=== PATIENT | male | born 1960 | race Caucasian/White ===

== ENCOUNTER 2019-06-22 10:34 | Emergency (ER) | payer BC, SELFPAY ==
[2019-06-22 10:41] VITALS: BP 137/78; PULSE 86; RESP 20; TEMP 36.5; O2SAT 99
--- NOTE | 2019-06-22 10:48 | ED.URI ---
HPI - URI/Sore Throat General Chief Complaint: Upper Respiratory Infection Stated Complaint: cough/runny nose/nausea/sore throat Time Seen by Provider: 06/22/19 10:52 Source: patient and RN notes reviewed History of Present Illness HPI Narrative: Patient is a 59-year-old male that presents the urgent care with complaints of chills, sweats, body aches, nonproductive cough, runny nose, intermittent nausea and sore throat. Patient states it started approximately 1 week ago and the symptoms seem to be getting better. Patient denies any fever or vomiting. No other acute complaints. No acute distress noted. Patient read the plan of care. Related Data Home Medications Medication Instructions Recorded Confirmed omeprazole 20 mg PO DAILY 06/22/19 06/22/19 triamterene 25 mg PO DAILY 06/22/19 06/22/19 Allergies Allergy/AdvReac Type Severity Reaction Status Date / Time No Known Allergies Allergy Mild Verified 06/22/19 10:50 Review of Systems Review of Systems: Narrative: CONSTITUTIONAL: Reports of chills and sweats EYES: Denies visual changes, redness, or discharge. ENT: Reports of rhinorrhea, sinus congestion, mild sore throat CARDIOVASCULAR: Denies chest pain, palpitations, or edema. RESPIRATORY: Reports of nonproductive cough without dyspnea GASTROINTESTINAL: Denies abdominal pain, nausea, vomiting, or diarrhea. GENITOURINARY: Denies dysuria or hematuria. SKIN: Denies rash or itching. MUSCULOSKELETAL: Denies back pain, joint pain, or myalgia. NEUROLOGIC: Denies headache, numbness, or weakness. All other systems reviewed are negative, except as documented in HPI. PMFSH Family History Family History (Updated 11/25/15 @ 23:21 by DOCTOR UNKNOWN) Mother Hypertension Cerebrovascular accident Family history of diabetes mellitus in first degree relative Sibling Family history of diabetes mellitus in first degree relative Patient's sister is in good health Other Diabetes mellitus Social History Social History Smoking status: Heavy tobacco smoker Alcohol intake: current Comments At the time of my signature, I reviewed and agree with the nursing past medical, surgical, social, and family history. There is no relevant family history pertinent to the patient complaint. Exam Narrative: Exam Narrative: GENERAL: This is a well-nourished, well-developed patient, appears slightly fatigued HEAD: normocephalic, atraumatic. EYES: PERRL. Sclera clear/white. Vision is grossly intact. EARS: External ears normal, auditory canals clear and without drainage, TMs normal without perforation. Hearing grossly intact. NOSE: External nose normal with no obvious nasal discharge, bilateral erythemic nares with clear rhinorrhea. THROAT: Mucous membranes moist, mild erythema noted posterior oropharynx with moderate postnasal drainage. NECK: Neck supple CARDIOVASCULAR: Regular rate and rhythm without murmurs, gallops, or rubs. RESPIRATORY: Clear to auscultation. Breath sounds equal bilaterally. No wheezes, rales, or rhonchi. SKIN: warm, intact with no suspicious lesions or rash, good texture and turgor. NEURO: awake, alert, and oriented to person, place and time. There were no obvious focal neurologic abnormalities. EXTREMITIES: No clubbing, cyanosis, or edema. Course Vital Signs Vital signs: Vital Signs Temperature 97.7 F 06/22/19 10:41 Pulse Rate 86 06/22/19 10:41 Respiratory Rate 20 06/22/19 10:41 Blood Pressure 137/78 06/22/19 10:41 Pulse Oximetry 99 06/22/19 10:41 Temperature 97.7 F 06/22/19 10:41 Pulse Rate 86 06/22/19 10:41 Respiratory Rate 20 06/22/19 10:41 Blood Pressure 137/78 06/22/19 10:41 Pulse Oximetry 99 06/22/19 10:41 Reviewed MDM - URI/Sore Throat MDM Narrative Medical decision making narrative: Advised patient to continue using [id number] medications for symptoms. May use Robitussin or Delsym for cough. Treat fevers and body aches with Tylenol/ibuprofen. Use Flona
== END 2019-06-22 11:00 | disposition home or self-care (01) ==
PROVIDERS: Emergency Provider Nurse Practitioner Family; PCP Family Medicine
DX: J06.9 Acute upper respiratory infection, unspecified (principal); F17.200 Nicotine dependence, unspecified, uncomplicated; I10 Essential (primary) hypertension
CPT/HCPCS: 99211; G0463

== ENCOUNTER 2021-01-12 15:45 | Outpatient (CLI) | payer BC, SELFPAY ==
--- NOTE | ~2021-01-12 | CT_ITS ---
EXAMINATION: CT lung screening DATE: 01/12/2021 16:11 INDICATION: Personal history of nicotine dependence, current smoker with 30 pack year history TECHNIQUE: Computed tomography (CT) of the chest was performed without intravenous contrast. The dose -length product (DLP) was 233.39 mGy-cm. Automated exposure control and iterative reconstruction tech Enstrat[employer] were employed. COMPARISON: 02/28/2018 FINDINGS: No pulmonary nodules are identified. There is mild emphysema. The lungs are free of acute o pacities. There is no pleural effusion or pneumothorax. No pathologically enlarged thoracic lymph nod es are identified. The heart size is normal. Calcified coronary artery atherosclerosis is noted. The gallbladder is surgically absent. There is moderate thoracic spondylosis. IMPRESSION: 1. Lung-RADS category 1: Negative. Continue annual screening with noncontrast low-dose chest CT in 12 months. Reviewed, dictated and finalized at location F. IMPRESSION: 1. Lung-RADS category 1: Negative. Continue annual screening with noncontrast l ow-dose chest CT in 12 months.
== END 2021-01-12 15:46 | disposition home or self-care (01) ==
PROVIDERS: PCP Family Medicine; Visit Provider Family Medicine
DX: Z12.2 Encounter for screening for malignant neoplasm of respiratory organs (principal); Z87.891 Personal history of nicotine dependence
CPT/HCPCS: 71271

== ENCOUNTER 2021-07-05 08:31 | Outpatient (CLI) | payer BC, SELFPAY ==
--- NOTE | ~2021-07-05 | CT_ITS ---
EXAMINATION: CT abdomen pelvis wo con EXAM DATE: 07/05/2021 08:52 INDICATION: R10.32 - Left lower quadrant pain TECHNIQUE: Spiral CT of the abdomen and pelvis was performed without contrast. Axial, coronal and sag ittal images were reviewed. The dose-length product (DLP) for this examination was 1235.89 mGy-cm. The exposure was tailored according to patient size (auto mA exposure control), and iterative reconst ruction (ASIR) was used as additional dose reduction technique. Comparison is made to prior examinati on from 2008. FINDINGS: Mild scattered colonic diverticulosis with moderate amount of inflammation along the descen ding colon, appearance is consistent with acute colonic diverticulitis, possibly with microperforatio n, tiny focus of adjacent extraluminal gas. No abscess or gross free intraperitoneal air. Interval appendectomy. Mild to moderate amount of nonspecific bilateral perinephric fat stranding. Th ere is no nephrolithiasis or hydronephrosis. The prostate is unremarkable. The bladder is unremark able. The liver, spleen, adrenal glands and pancreas are unremarkable. There are cholecystectomy cl ips. There is no retroperitoneal or pelvic lymphadenopathy. There is moderate scattered arterioscl erotic disease. The heart is normal in size. There are no pericardial or pleural effusions. The lung bases are unre markable. There are no osteoblastic or osteolytic lesions identified. IMPRESSION: 1. Acute descending colonic diverticulitis, possibly with microperforation. 2. Mild to moderate nonspecific bilateral perinephric fat stranding. Reviewed, dictated and finalized at location A. MAKER
== END 2021-07-05 08:32 | disposition home or self-care (01) ==
LOC: ANHIMG 08:34
PROVIDERS: PCP Family Medicine; Visit Provider Family Medicine
DX: R10.32 Left lower quadrant pain (principal); K57.32 Diverticulitis of large intestine without perforation or abscess without bleeding
CPT/HCPCS: 74176

== ENCOUNTER 2022-01-23 16:06 | Outpatient (CLI) | payer BC, SELFPAY ==
--- NOTE | ~2022-01-23 | CT_ITS ---
EXAMINATION: CT lung screening DATE: 01/23/2022 16:26 INDICATION: Personal history of nicotine dependence. Lung cancer screening. TECHNIQUE: Computed tomography (CT) of the chest was performed without intravenous contrast. The dose -length product was 222.11 mGy-cm. Automated exposure control and iterative reconstruction technique were employed. COMPARISON: CT dated 01/12/2021 FINDINGS: Heart size normal. No significant pleural or pericardial effusion. Status post cholecystect fredrick. Mild emphysema. No endobronchial lesions. No pneumothorax. There are cholecystectomy clips. The upper abdomen is unremarkable. Gastric wall is mildly prominent, although could be due to underdisten tion. Moderate thoracic spondylosis. No suspicious pulmonary nodules or masses. IMPRESSION: 1. Lung-RADS category 1: Negative. Continue annual screening with noncontrast low-dose chest CT in 12 months. Reviewed, dictated and finalized at location B. IMPRESSION: 1. Lung-RADS category 1: Negative. Continue annual screening with noncontrast l ow-dose chest CT in 12 months.
== END 2022-01-23 16:07 | disposition home or self-care (01) ==
PROVIDERS: PCP Family Medicine; Visit Provider Family Medicine
DX: Z12.2 Encounter for screening for malignant neoplasm of respiratory organs (principal); Z87.891 Personal history of nicotine dependence
CPT/HCPCS: 71271

== ENCOUNTER 2022-03-02 15:57 | Outpatient (CLI) | payer BC, SELFPAY ==
--- NOTE | ~2022-03-02 | XR_ITS ---
EXAMINATION: XR tibia fibula LT 2V, XR ankle LT min 3V DATE: 03/02/2022 16:19 INDICATION: One month of left lower leg pain TECHNIQUE: 1. Anteroposterior and lateral views of the left tibia and fibula were obtained. 2. Anteroposterior, oblique, mortise, and lateral views of the left ankle were obtained. COMPARISON: Left knee radiographs dated 02/12/2012 FINDINGS: Bone alignment is normal from the left knee through the left midfoot. No fracture. Mild joint space n arrowing at the medial compartment of the left knee likely underestimated on nonweightbearing imaging with moderate joint space narrowing evident at the time of an earlier left knee radiograph dated . Normal joint space at the left ankle, mid and hindfoot. Small amount of likely enthesopathic ossification along the tibial insertions of the tibiofibular syndesmosis at the proximal and distal left tibia. Moderate-sized plantar calcaneal spur. Soft tissues are unremarkable. IMPRESSION: 1. 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 No acute osseous abnormality at the left lower leg or ankle. Reviewed, dictated and finalized at location B. IMPRESSION: 1. And at least moderate osteoarthritis of the medial compartment of the left k nee. No acute osseous abnormality at the left lower leg or ankle.
== END 2022-03-02 15:58 | disposition home or self-care (01) ==
LOC: ANHIMG 16:00
PROVIDERS: PCP Family Medicine; Visit Provider Physician Assistant
DX: M79.662 Pain in left lower leg (principal); M17.12 Unilateral primary osteoarthritis, left knee
CPT/HCPCS: 73590; 73610

== ENCOUNTER 2022-03-07 15:17 | Outpatient (CLI) | payer BC, SELFPAY ==
--- NOTE | ~2022-03-07 | US_ITS ---
EXAMINATION: US venous doppler [facility] DATE: 03/07/2022 16:11 INDICATION: Bilateral lower limb pain TECHNIQUE: Smith scale images without and with compression and Doppler images of the bilateral lower e xtremity veins were obtained. COMPARISON: None FINDINGS: The right common femoral vein, profunda femoral vein, femoral vein, popliteal vein, peroneal trunk, p osterior tibial veins, and greater saphenous vein are patent. The left common femoral vein, profunda femoral vein, femoral vein, popliteal vein, peroneal trunk, po sterior tibial veins, and greater saphenous vein are patent. IMPRESSION: 1. Patent bilateral lower extremity veins. No evidence of deep venous thrombosis. Reviewed, dictated and finalized at location B. NE TUTOR IMPRESSION: 1. Patent bilateral lower extremity veins. No evidence of deep venous thrombosi s.
== END 2022-03-07 15:18 | disposition home or self-care (01) ==
PROVIDERS: PCP Family Medicine; Visit Provider Physician Assistant
DX: M79.669 Pain in unspecified lower leg (principal); M79.89 Other specified soft tissue disorders
CPT/HCPCS: 93970

== ENCOUNTER 2022-03-09 00:10 | Day surgery (SDC) | payer BC, SELFPAY ==
[2022-03-02 11:11] VITALS: BMI 31.6
[2022-03-09 08:07] VITALS: BP 137/79; PULSE 83; RESP 20; TEMP 36.2; O2SAT 100; BMI 31.2
--- NOTE | 2022-03-09 08:11 | WPDANESEPPF ---
Anes - Initial Pre Proc Eval Procedure: Operation Date: 03/09/22 09:00 Proposed Procedures p Screening Colonoscopy - Jonathan Abdul MD Date/Time: 03/09/22 08:11 Surgeon: Jonathan Abdul MD Pre Op Diagnosis: neoplasm screening; history of colon polyps Patient Data Age: 61 Gender: M Height: 1.78 m Weight: 98.8 kg Last Vital Signs Temp 36.2 C L 03/09/22 08:07 Pulse 83 03/09/22 08:07 Resp 20 03/09/22 08:07 BP 137/79 03/09/22 08:07 Pulse Ox 100 03/09/22 08:07 O2 Del Method Room Air 03/09/22 08:07 Allergies Allergy/AdvReac Type Severity Reaction Status Date / Time No Known Allergies Allergy Mild Verified 03/02/22 11:12 Home Medications Medication Instructions Recorded Confirmed Type omeprazole 20 mg tablet,delayed 20 mg PO DAILY #90 tabs 11/06/21 03/02/22 Rx release sodium,potassium,mag sulfates 17.5 See Rx Instructions PO .COMPLEX 01/24/22 03/02/22 Rx gram-3.13 gram-1.6 gram oral soln #354 mL (Suprep Bowel Prep Kit) tramadol 50 mg tablet 50 mg PO BID PRN pain, severe #30 03/01/22 03/02/22 Rx tabs atenolol 50 mg tablet 50 mg PO DAILY 03/02/22 03/02/22 History metoprolol succinate 50 mg 50 mg PO DAILY #90 tabs 03/05/22 Rx tablet,extended release 24 hr Patient hx anesthesia problems: none Family hx anesthesia problems: none Results Review: All pre-operative results and documents have been reviewed as part of the pre-operative evaluation. [facility] Past Medical History Medical History Cutaneous T-cell lymphoma GERD (gastroesophageal reflux disease) HTN (hypertension) Tobacco use Family History Family History Mother Hypertension Cerebrovascular accident Family history of diabetes mellitus in first degree relative Sibling Family history of diabetes mellitus in first degree relative Patient's sister is in good health Other Diabetes mellitus Social History Social History Smoking packs per day: 0.75 Smoking cigarettes per day: 15.0 Years smoked: 45 Smoking pack-years: 33.75 Smoking status: Current every day smoker Tobacco type: cigarettes Second hand tobacco smoke exposure: No Alcohol intake: current Drinks per week: 14 Alcohol use details: WEEK Substance use: never Substance use type: does not use Living arrangements: with family Gender identity (if verbalized by the patient): Male Sexual Orientation (if Verbalized by the Patient): Straight or Heterosexual Spiritual care concerns: No Anes - Eval Final PreProcedure Day of Procedure 03/09/22 08:11 Patient weight: obese Heart: regular rate and rhythm Lungs: clear to auscultation Airway: Mallampati scale class II Neurological: alert and oriented Last oral intake: >/= 8 hours ASA classification: III Emergent: no Anesthetic plan: proceed Anesthesia type and monitoring: general GIVS and standard monitoring Results Review: All pre-operative results and documents have been reviewed as part of the pre-operative evaluation. Informed Consent: The patient's anesthetic plan and its attendant risks and benefits were discussed with the patient/family/POA. Questions were solicited and answers provided to the satisfaction of the patient/family/POA.
--- NOTE | 2022-03-09 08:21 | PM.HPGS ---
History of Present Illness History of Present Illness Consent: Risks, benefits, and alternatives have been discussed and questions answered. Patient agrees to proceed with procedure. Chief complaint: neoplasm screening; history of colon polyps Narrative: Wilber Aden is a 61 year old male Presents for screening colonoscopy. Patient states his current weight appetite bowel movements are normal. He denies abdominal pain. He has had no bleeding. Patient did have a bout of diverticulitis several months ago that responded to antibiotics. He has had several recent colonoscopy is at were unremarkable. There is a history of a colon polyp some time prior to 2003. Review of Systems Review of Systems: Review of systems noncontributory. [facility] Past Medical History Medical History Cutaneous T-cell lymphoma GERD (gastroesophageal reflux disease) HTN (hypertension) Tobacco use Family History Family History Mother Hypertension Cerebrovascular accident Family history of diabetes mellitus in first degree relative Sibling Family history of diabetes mellitus in first degree relative Patient's sister is in good health Other Diabetes mellitus Social History Social History Smoking packs per day: 0.75 Smoking cigarettes per day: 15.0 Years smoked: 45 Smoking pack-years: 33.75 Smoking status: Current every day smoker Tobacco type: cigarettes Second hand tobacco smoke exposure: No Alcohol intake: current Drinks per week: 14 Alcohol use details: WEEK Substance use: never Substance use type: does not use Living arrangements: with family Gender identity (if verbalized by the patient): Male Sexual Orientation (if Verbalized by the Patient): Straight or Heterosexual Spiritual care concerns: No Meds Home Medications and Allergies Home Medications Medication Instructions Recorded Confirmed Type omeprazole 20 mg tablet,delayed 20 mg PO DAILY #90 tabs 11/06/21 03/02/22 Rx release sodium,potassium,mag sulfates 17.5 See Rx Instructions PO .COMPLEX 01/24/22 03/02/22 Rx gram-3.13 gram-1.6 gram oral soln #354 mL (Suprep Bowel Prep Kit) tramadol 50 mg tablet 50 mg PO BID PRN pain, severe #30 03/01/22 03/02/22 Rx tabs atenolol 50 mg tablet 50 mg PO DAILY 03/02/22 03/02/22 History metoprolol succinate 50 mg 50 mg PO DAILY #90 tabs 03/05/22 Rx tablet,extended release 24 hr Allergies Allergy/AdvReac Type Severity Reaction Status Date / Time No Known Allergies Allergy Mild Verified 03/02/22 11:12 Vital Signs Vital Signs - 24 hr 03/09/22 08:07 Temperature 97.1 F L Pulse Rate 83 Respiratory Rate 20 Blood Pressure 137/79 Pulse Oximetry 100 Oxygen Delivery Room Air Exam Narrative: Physical exam reveals patient to be alert. Vital signs stable. HEENT exam is unremarkable. Patient is anicteric. Lungs are clear to auscultation and percussion. Heart is without murmur or extra sounds. Abdominal exam bowel sounds present soft nontender with no organomegaly. Digital external rectal exam is normal. Assessment and Plan Assessment and plan (1) Encounter for screening colonoscopy: Code(s): Z12.11 - Encounter for screening for malignant neoplasm of colon Status: Acute Assessment and Plan: Patient presents for screening colonoscopy. Further recommendations will be given after endoscopy.
[2022-03-09] MEDS: LACTATED RINGERS 1,000 ML 150 ML IV CONT (08:22)
[2022-03-09 09:08] VITALS: BP 88/61; PULSE 66; RESP 24; O2SAT 95
[2022-03-09 09:18] VITALS: BP 118/86; PULSE 75; RESP 24; O2SAT 94
[2022-03-09 09:28] VITALS: BP 128/88; PULSE 77; RESP 18; O2SAT 95
== END 2022-03-09 09:37 | disposition home or self-care (01) ==
PROVIDERS: PCP Family Medicine; Visit Provider Internal Medicine Gastroenterology
PROC: 0DJD8ZZ Inspection of Lower Intestinal Tract, Via Natural or Artificial Opening Endoscopic (ICD-10-PCS; CPT 45378; principal; 2022-03-09 09:00)
DX: Z12.11 Encounter for screening for malignant neoplasm of colon (principal); K64.8 Other hemorrhoids; K57.30 Diverticulosis of large intestine without perforation or abscess without bleeding; Z86.010 Personal history of colon polyps; I10 Essential (primary) hypertension; K21.9 Gastro-esophageal reflux disease without esophagitis; Z85.72 Personal history of non-Hodgkin lymphomas; F17.210 Nicotine dependence, cigarettes, uncomplicated; E66.9 Obesity, unspecified; Z68.31 Body mass index [BMI] 31.0-31.9, adult
CPT/HCPCS: 45378; J2704; J7120

== ENCOUNTER 2022-04-18 16:17 | Outpatient (CLI) | payer BC, SELFPAY ==
--- NOTE | ~2022-04-18 | XR_ITS ---
Lumbosacral Spine: AP and lateral views Clinical History: Pain Findings: The normal lordotic curve is maintained. Minimal grade 1 anterolisthesis of L4 over L5 note d. No fracture seen. There are facet joint degenerative changes throughout the lumbar spine, worst at L4-L5 and L5-S1. Mild degenerative disc narrowing noted at L2-L3. The intervertebral disc spaces are preserved. The sacroiliac joints are normally outlined. Impression: Minimal grade 1 anterolisthesis of L4 over L5. Additional degenerative changes, as above. Reviewed, dictated and finalized at location M. E PRESS OPERATOR Impression: Minimal grade 1 anterolisthesis of L4 over L5. Additional degenerative changes, as above.
== END 2022-04-18 16:18 | disposition home or self-care (01) ==
PROVIDERS: PCP Family Medicine; Visit Provider Physician Assistant
DX: M54.50 Low back pain, unspecified (principal); M51.36 Other intervertebral disc degeneration, lumbar region
CPT/HCPCS: 72100

== ENCOUNTER 2022-05-25 15:51 | Outpatient (CLI) | payer BC, SELFPAY ==
--- NOTE | ~2022-05-25 | MR_ITS ---
EXAMINATION: MR lumbar spine wo con DATE: 05/25/2022 16:35 INDICATION: Low back pain. Left leg pain. TECHNIQUE: Magnetic resonance imaging (MRI) of the lumbar spine was performed without intravenous con trast. COMPARISON: Lumbar spine radiographs 04/18/2022 FINDINGS: There is 3 mm retrolisthesis of L2 on L3 and 3 mm anterolisthesis of L4 on L5 and L5 on S1. There is mild chronic anterior wedging of T12 vertebral body. There is mildly decreased disc height at T11-T12, T12-L1, L2-L3, and L4-L5. The distal spinal cord signal intensity is normal. The conus me dullaris is at T12-L1. The following disc levels are specifically discussed: L1-L2: The disc does not extend beyond the endplate margin. There is mild right facet joint osteoarth ritis. There is no neural foraminal stenosis. There is no central canal stenosis. L2-L3: The disc is bulging. There is mild bilateral facet joint osteoarthritis. There is mild bilater al neural foraminal stenosis. There is mild central canal stenosis. L3-L4: The disc is bulging. There is mild bilateral facet joint osteoarthritis. There is mild left ne ural foraminal stenosis. There is no central canal stenosis. L4-L5: The disc does not extend beyond the endplate margin. There is severe bilateral facet joint ost eoarthritis. There is mild bilateral neural foraminal stenosis. There is no central canal stenosis. L5-S1: The disc does not extend beyond the endplate margin. There is severe bilateral facet joint ost eoarthritis. There is mild bilateral neural foraminal stenosis. There is no central canal stenosis. IMPRESSION: 1. Mild lumbar spondylosis. Reviewed, dictated and finalized at location A. TRONICS MANUFACTURER IMPRESSION: 1. Mild lumbar spondylosis.
== END 2022-05-25 15:52 | disposition home or self-care (01) ==
PROVIDERS: PCP Family Medicine; Visit Provider Physician Assistant
DX: M79.669 Pain in unspecified lower leg (principal); M47.896 Other spondylosis, lumbar region
CPT/HCPCS: 72148

== ENCOUNTER 2023-03-08 16:21 | Outpatient (CLI) | payer BC, SELFPAY ==
--- NOTE | ~2023-03-08 | CT_ITS ---
EXAMINATION:CT lung screening DATE: 03/08/2023 16:41 INDICATION: Tobacco use. Current smoker with 45 pack year history. TECHNIQUE: Computed tomography (CT) of the chest was performed without intravenous contrast. Automate d exposure control and iterative reconstruction technique were employed. The dose-length product (DLP ) was 344.93 mGy-cm. COMPARISON: Chest CT 01/23/2022 FINDINGS: There is mild emphysema. No pleural effusion. The heart size is normal. No pericardial effu john. There is moderate thoracic spondylosis. There is mild chronic anterior wedging of T7 vertebral body. IMPRESSION: 1. Lung-RADS category 1: Negative. Continue annual screening with noncontrast low-dose chest CT in 12 months. Reviewed, dictated and finalized at location E. RER OPERATOR IMPRESSION: 1. Lung-RADS category 1: Negative. Continue annual screening with noncontrast l ow-dose chest CT in 12 months.
== END 2023-03-08 16:22 | disposition home or self-care (01) ==
PROVIDERS: PCP Family Medicine; Visit Provider Family Medicine
DX: F17.210 Nicotine dependence, cigarettes, uncomplicated (principal)
CPT/HCPCS: 71271

== ENCOUNTER 2024-03-11 16:05 | Outpatient (CLI) | payer BC, SELFPAY ==
--- NOTE | ~2024-03-11 | CT_ITS ---
EXAMINATION: CT lung screening DATE: 03/11/2024 16:37 INDICATION: Z72.0 - Tobacco use TECHNIQUE: Computed tomography (CT) of the chest was performed without intravenous contrast. Addition al 3D reconstructions utilizing coronal maximum intensity projection (MIP) were performed. Automated exposure control and iterative reconstruction technique were employed. The dose-length product was 18 9.11 mGy-cm. COMPARISON: None FINDINGS: No pulmonary nodules, pneumonia, pulmonary edema or pleural effusion. Heart size is normal. Atheroscl erotic coronary artery calcific lesion. No pericardial effusion. Thoracic aorta is normal in caliber. Cholecystectomy clips the gallbladder fossa. Mild thoracic dextrocurvature with moderate spondylosis . IMPRESSION: 1. Lung-RADS category 1: Negative. Continue annual screening with noncontrast low-dose chest CT in 12 months. Reviewed, dictated and finalized at location B. E SHARPENER IMPRESSION: 1. Lung-RADS category 1: Negative. Continue annual screening with noncontrast l ow-dose chest CT in 12 months.
== END 2024-03-11 16:06 | disposition home or self-care (01) ==
PROVIDERS: PCP Family Medicine; Visit Provider Family Medicine
DX: Z12.2 Encounter for screening for malignant neoplasm of respiratory organs (principal); Z72.0 Tobacco use
CPT/HCPCS: 71271

== ENCOUNTER 2025-03-05 00:35 | Day surgery (SDC) | payer MEDICARE, SELFPAY ==
--- OUTSIDE RECORDS SUMMARY | 2022-05-02 08:27 | XMS_ITS | Continuity of Care Document ---
Author Organization [employer] [place] Address [address] [place] [address] Phone Care Team Providers Care Program Development Specialist Name Role Phone Alina PT, DIPESHT, Frantz Unavailable Unavailable Procedures Procedure Date Therapeutic Activities Neuromuscular Re-Ed Therapeutic Exercise Therapeutic Activities Therapeutic Exercise Neuromuscular Re-Ed Therapeutic Activities Neuromuscular Re-Ed Therapeutic Exercise Therapeutic Activities Neuromuscular Re-Ed Therapeutic Exercise Progress Note Therapeutic Activities Neuromuscular Re-Ed Therapeutic Exercise Therapeutic Activities Therapeutic Exercise Neuromuscular Re-Ed Therapeutic Activities Neuromuscular Re-Ed Therapeutic Exercise Therapeutic Activities Neuromuscular Re-Ed Therapeutic Exercise Therapeutic Activities Neuromuscular Re-Ed Therapeutic Exercise Therapeutic Activities Neuromuscular Re-Ed Therapeutic Exercise Therapeutic Activities Neuromuscular Re-Ed Therapeutic Exercise Therapeutic Activities Neuromuscular Re-Ed Therapeutic Exercise PT Evaluation Moderate Complexity Therapeutic Activities Therapeutic Exercise Advance Directives Directive Yes / No Effective Date File Name No Information Encounters Encounter Description Practice Location Reason(s) For Visit Diagnoses Date Provider Providers Copied on Encounter [facility], [place], [place], [id number], tel:[phone] [place] No Information Damian-0 4- 3 Alina Frantz. . [facility], [place], [place], [id number], [place] tel:[phone] [place] No Information Dec-2 - 2 Alina Frantz. . [facility], [place], [place], [id number], tel:[phone] [place] No Information Dec-2 7- 2 Barrynolvianelia Frantz. . [facility], [place], [place], [id number], [place] tel:[phone] [place] No Information Dec-2 2-202 2 Amnanelia Frantz. . [facility], [place], [place], [id number], [place] tel:[phone] [place] No Information Dec-2 0-202 2 Barrynolvianelia Frantz. . [facility], [place], [place], [id number], [place] tel:[phone] [place] No Information Dec-1 5-202 2 Amnanelia Frantz. . [facility], [place], [place], [id number], [place] tel:[phone] [place] No Information Dec-1 3-202 2 Barrynolvianelia Frantz. . [facility], [place], [place], [id number], [place] tel:[phone] [place] No Information Dec-0 8-202 2 Alina Landry. . [facility], [place], [place], [id number], [place] tel:[phone] [place] No Information 2 Alina Landry. . [facility], [place], [place], [id number], tel:[phone] [place] No Information 2 Alina Landry. . [facility], [place], [id number], [place] tel:[phone] [place] No Information 2 Alina Landry. . [facility], [place], [place], [id number], [place] tel:[phone] [place] No Information 2 Alina Landry. . [facility], [place], [id number], tel:[phone] [place] No Information 2 Alina Landry. . [facility] [place] [address], [id number], [place] tel:[phone] [place] No Information 2 Alina Landry. . Family History Family Member Type Diagnosis Age At Onset No Information Payers Payer name Insurance type Covered constitution party ID Glenn singh(s) [facility] [id number] Social History Type Description Quantity Date Captured Comments Sex Male Smoking Status No Information Chief Complaint And Reason For Visit No Information Reason For Referral Reason For Referral No Information History Of Present Illness Encounter Date Complaint History Of Prese nt Illness No Information Functional Status Date Functional Assessmen t No Information Instructions Date Instruction Additional Infor mation Giving encouragement to exercise Related to Overweight Giving encouragement to exercise Related to Overweight Assessments Type Assessment Date No Information Patient Care Teams Name Effective Dates (start - stop) Status Members No Information
--- OUTSIDE RECORDS SUMMARY | 2024-08-20 08:30 | XMS_ITS ---
Author Organization [facility] Address [address] [id number] Care Team Providers Care Procurement Cost Coordinator Name Role Phone Robles Kerr Primary Care Provider Baron Archibald [phone] REASON FOR VISIT sinus problems//ks Encounters Encounter Location Date Provider Diagnosis [facility] [address] [place] [id number] 08/20/2024 Baron Jackson Plan Of Treatment No Information History and Physical Notes * Examination Category Sub-Category Detail Notes Category Not es Ear External ear: pinna without erythema Middle ear: right TM intact, lef t TM intact, no effusion Tube status: negative for PE tube s TM perforation: negative for perfora tion Foreign body: negative for foreign body Tgram: not performed Audiogram: not done Rhomberg not done External Auditory Canal clear bilaterall y Nose Nasal dorsum: midline Septum: midline, equal airwa y, no hematoma, no abscess Inferior turbinates: normal pink Middle turbinates: normal Secretions: none Foreign body: none seen Oral/Oropharynx Normal-Oral/Oropharynx: no bifid uvula , mucous membranes moist Teeth: good dentition FOM: no lesions Tongue: normal without lesio n Palate: no lesions Oropharynx: no erythema or exuda te Tonsils 2+ Neck Normal Neck: supple, no masses Trachea: midline Thyroid: no thyromegaly, non- tender TMJ: no crepitance, good joint motion, no popping or clicking Submandibular [place] no masses palpate d Neurological Cranial Nerves: II-XII grossly intact, no focal deficits noted Gait: normal Orientation Alert & oriented x3 Head NC/AT, no alopecia Eyes Eye exam PERRLA, vision i ntact bilaterally, EOMI, no ectropion, no scleral hemorrhage, no exophthalmos, No nystagmus Cardiovascular Cardiovascular Exam Pulses are s ymmetric, no JVD, no peripheral edema noted Heart not auscultated Respiratory Respiratory Exam Breathing is no n-labored, no audible wheezing, no stridor, no use of accessory muscles Lungs not auscultated Integumentary Face no lesions Neck no lesions Other locations no lesions, no rashe s Constitutional General Alert & Oriented x3, no acute distress, appears stated age Nutritional Status well nourished Lymphatic Lymphatic Exam No neck lymphadenopathy Progress Notes * Wilber OSORIODOB:[birth year] (64 yo M)Acc No.[id number]:08/20/2024 Progress Note Patient: Wilber Milan Provider: Nura Jackson DO :1960 A ge:64 Y S ex:Male Date:08/20/2024 Address:[address] [place] [address] Pcp:Robles Kerr Subjective: * Chief Complaints: * S inus problems//ks Objective: * Examination: C onstitutional: General A lert & Oriented x3, no acute distress, appears stated age. Nutritional Status w ell nourished. H ead: N C/AT, no alopecia. I ntegumentary: Face n o lesions. Neck n o lesions. Other locations n o lesions, no rashes. ? E ar: External ear: p pierre without erythema. External Auditory Canal c lear bilaterally. Middle ear: r ight TM intact, left TM intact, no effusion.? Tube status: n egative for PE tubes. TM perforation: n egative for perforation. Foreign body: n egative for foreign body. Tgram: n ot performed. Audiogram: n ot done. Rhomberg n ot done. N ose: Nasal dorsum: m idline. Septum: m idline, equal airway, no hematoma, no abscess.? Inferior turbinates: n ormal pink. Middle turbinates: n ormal. Secretions: n one. Foreign body: n one seen. O ral/Oropharynx: Normal-Oral/Oropharynx: n o bifid uvula, mucous membranes moist. Teeth: g ood dentition. FOM: n o lesions. Tongue: n ormal without lesion. Palate: n o lesions. Oropharynx: n o erythema or exudate. Tonsils 2 +. N alem: Normal Neck: s upple, no masses. Trachea: m idline. Thyroid: n o thyromegaly, non-tender. TMJ: n o crepitance, good joint motion, no popping or clicking. Submandibular [place] n o masses palpated. ? L ymphatic: Lymphatic Exam N o neck lymphadenopathy. ? E yes: Eye exam P ERRLA, vision intact bilaterally, EOMI, no ectropion, no scleral hemorrhage, no exophthalmos, No nystagmus. C ardiovascular: Cardiovascular Exam P ulses are symmetric, no JVD, no peripheral edema noted. Heart n ot auscultated. R espiratory: Respiratory Exam B reathing is non-labored, no audible wheezing, no stridor, no use of accessory muscles. Lungs n ot auscultated. N eurological: Cranial Nerves: I I-XII grossly intact, no focal deficits noted. Gait: n ormal. Orientation A lert & oriented x3. ? * Electronic signature of Mustapha Jackson DO on 03/05/2025 at 12:37 AM ENVIRONMENTAL HEALTH AND SAFETY MANAGER Sign off status: Pending * Provider: Nura Jackson DO Date: 0 08/20/2024 Generated for Martín tang/Herson/eTnidasmitting on: 05/05/2024 12:37 AM ENVIRONMENTAL HEALTH AND SAFETY MANAGER
[2025-03-01 13:34] VITALS: BMI 27.8
--- OUTSIDE RECORDS SUMMARY | 2025-03-05 00:37 | XMS_ITS | Clinical Summary ---
Author Organization [facility] Address [address] [facility] [place] [address] Care Team Providers Care Inspector Clip On Sunglasses Name Role Phone Robles Kerr MD Primary Care Provider [phone] Source Comments [facility],non-owned Affiliates and Associated Physician Practices is amultiple site organization consisting of ambulatory clinics and hospital sitesin [place], [place], [place] and [place]. This disclosure is being madepursuant to the Care Everywhere program and may not contain all information available regarding this patient. Last updated 18.[facility] Allergies No known active allergies Medications * Be aware that medications may not be up to date on this document. Alwaysverify current medications with the patient. atenolol (Tenormin) 50 MG tablet Take 1 (one) tablet by mouth once daily Active omeprazole (PriLOSEC) 20 MG capsule Take 1 (one) capsule by mouth daily before breakfast Active metoprolol succinate XL 24hr (Toprol XL) 50 MG tablet Take 1 (one) tablet by mouth once daily Active valsartan-hydro CHLOROthiazide (Diovan HCT) 80-12.5 MG tablet 5 Active HYDROcodone-lucille taminophen (Riverside) 7.5-325 MG tablet TAKE 1 TABLET BY MOUTH EVERY 6 HOURS X 3 DAYS 5 Active sildenafil (Viagra) 100 MG tablet TAKE 1 TABLET BY MOUTH EVERY DAY NEEDED FOR SEXUAL ACTIVITY. ADMINISTER 30 MINS - 4 HOURS BEFORE ACTIVITY 4 Active Hospital, Clinic, or Other Facility Administered Medication Ordered Dose Route Frequency Start Date End Date Status 0.9% NaCl injection 3 mLIndications:Right shoulder pain, unspecified chronicity,Tendinitis of right rotator cuff 3 mL IX ONCE 02/16/2025 02/16/2025 Ended triamcinolone acetonide (Kenalog-40) injection 40 mgIndications:Right shoulder pain, unspecified chronicity,Tendinitis of right rotator cuff 40 mg IX ONCE 02/16/2025 02/16/2025 Ended Active Problems Problem Noted Date Diagnosed Date Allergic rhinitis 11/23/2024 Chronic sinusitis 11/23/2024 Facet arthritis of lumbosacral region 11/23/2024 Sensorineural hearing loss (SNHL) of both ears 0 11/23/2024 Lumbar radiculopathy 08/24/2024 Lumbosacral spondylosis without myelopathy 08/24 Encounters Date Type Department Care Team Description 02/16/2025 11:35 AM CDT Ancillary Procedure [facility] - Radiology [address] [place] [address] Rozina Soriano PA-C Right shoulder pain, unspecified chronicity 02/16/2025 11:30 AM CDT Office Visit [facility] [address] [facility], [address] [place] [address] Rozina Soriano PA-C Tendinitis of right rotator cuff (Primary Dx); Right shoulder pain, unspecified chronicity from Last 3 Months Social History Tobacco Use Types Packs/Day Years Used Date Smoking Tobacco: Unknown Tobacco Cessation:Counseling Given: Not Answered Alcohol Use Standard Drinks/Week Comments Yes 0 (1 standard drink = 0.6 oz pur e alcohol) PHQ-2 Answer Date Recorded Patient Health Questionnaire-2 Score 0 11/21/2024 Sex and Gender Information Value Date Recorded Sex Assigned at Not on file 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 Gender Identity Not on file Sexual Orientation Not on file Last Filed Vital Signs Vital Sign Reading Time Taken Comments Blood Pressure - - Pulse - - Temperature - - Respiratory Rate - - Oxygen Saturation - - Inhaled Oxygen Concentration - - Weight 95.3 kg (210 lb) 12/18/2022 2:49 PM CDT Height 177.8 cm (5' 10) 12/18/2022 2:49 PM CDT Body Mass Index 30.13 12/18/2022 2:49 PM CDT Plan of Treatment Health Maintenance Due Date Last Done Comments COLOGUARD (AGES 45-75) - COL ON CA SCREENING 1960 COLON MONITORING 1959 COLONOSCOPY - COLON CA SCREENING 1959 CT COLONOGRAPHY - COLON CA SCREENING 1959 Colorectal Cancer Screening 1959 FIT - COLON CA SCREENING 1959 FLEX SIG - COLON CA SCREENING 1959 LIPID TESTING 1960 MEDICARE AWV 12 MONTHS 1959 HIV SCREENING 1974 HEPATITIS C SCREENING 04/13/1977 DTAP/TDAP/TD VACCINES (1 - Tdap) 1978 PNEUMOCOCCAL VACCINE 50+ (1 of 1 - PCV) 2009 ZOSTER VACCINE (1 of 2) 2009 COVID-19 VACCINE (1 - 2023-2 5 season) 2024 INFLUENZA VACCINE (#1) 2024 Respiratory Syncytial Virus (RSV) Vaccine Pt: or over 60 yrs (1 - 1-dose 75+ series) 2034 DEPRESSION SCREENING Completed 11/23/2024 HEPATITIS B VACCINE Aged Out No longe r eligible based on patient's age to complete this topic HIB VACCINE Aged Out No longer eligi ble based on patient's age to complete this topic HPV VACCINE Aged Out No longer eligi ble based on patient's age to complete this topic MENINGOCOCCAL (Group B) VACC INE SHARED DECISION-MAKING Aged Out No longer eligibl e based on patient's age to complete this topic MENINGOCOCCAL GROUPS A/C/Y/W VACCINE Aged Out No longer eligible b ased on patient's age to complete this topic Procedures Procedure Name Priority Date/Time Associated Diagnosis Comments XR SHOULDER RIGHT 2VW OR MORE Routine 02/16/2025 11:34 AM CDT Right shoulder pain, unspecified chronicity from Last 3 Months Results * XR Shoulder Right 2Vw or More (02/16/2025 11:34 AM CDT) Narrative [facility] [address] - 02/16/2025 11:34 AM CDT Please see progress note in Epic for results. us Rozina Soriano PA-C DIAGNOSTIC IMAGING ORDERABLE S Final Result [facility] [address] from Last 3 Months Insurance MEDICARE AET Care Teams Inspector Clip On Sunglasses Relationship Specialty Start Date End Date Robles Kerr MD [address] [place] [address] PCP - General Family Medicine 09/17/24
--- OUTSIDE RECORDS SUMMARY | 2025-03-05 00:37 | XMS_ITS | Patient Health Record ---
Author Organization [facility] Address [address] [address] Care Team Providers Care Laborer Prestressed Concrete Name Role Phone Adarsh Garcia Unavailable [phone] Allergies No Known Allergies Reason For Referral No Information Medications Medication SIG (Take, Route, Frequency, Duration) Notes Start Date End Date Status Omeprazole 20 MG Oral; Duration: 90 Active Metoprolol Succinate ER 50 MG Oral; Duration: 90 Active Valsartan-hydroCHLOROthiaz oswaldo 80-12.5 MG Oral; Duration: 90 Active Social History Tobacco Use: Social History Observation Description Date Details (start date - stop date) Current Smoker NA - NA Tobacco Use/Smoking Question Answer Notes Are you a current smoker Problems Problem Type SNOMED Code ICD Code Onset Dates Problem Status W/U Status Risk Notes Problem Lumbar radiculopathy (864859889) Lumbar radiculopathy (M54.16) Active confirmed Problem Lumbosacral spondylosis without myelopathy (51827478) Facet arthritis of lumbosacral region (M47.817) Active confirmed Plan Of Treatment No Information Medications Administered Medication Instructions Date of Administration Dosage Notes Left L4 Selective Epidural S teroid Injection 06/26/2022 Left L5 Selective Epidural S teroid Injection 06/26/2022 Medical (General) History Medical History History ICD Code High blood pressure diverticulosis esophageal reflux cancer Surgical History Surgery Date(Month/Year) appendectomy 04/2008 cholecystectomy 09/2003
--- OUTSIDE RECORDS SUMMARY | 2025-03-05 00:37 | XMS_ITS | Patient Health Record ---
Author Organization [facility] Address [address] [phone] Care Team Providers Care Sheet Metal Erector Name Role Phone Robles Kerr Primary Care Provider Baron Archibald [phone] Allergies No Known Allergies Results Component Value Reference Range Notes Balloon Frontal * Reviewed date:12/14/2024 02:10:11 PM Interpretation: Performing Lab: Notes/Report: CT Scan : Sinuses Waves* Reviewed date:09/28/2024 12:29:53 PM Interpretation: Performing Lab: Notes/Report: Reason For Referral No Information Medications Medication SIG (Take, Route, Fr equency, Duration) Notes Start Date End Date Status ZyrTEC Active Omeprazole Active Tylenol Active Metoprolol Tartrate Active Valsartan Active Social History Social History Additional Details Category Social Info Options Details Social History Recreational drug use no Smokeless Tobacco no Problems Problem Type SNOMED Code ICD Code Onset Dates Problem Status W/U Status Risk Notes Problem Allergic rhinitis (34130299) Allergic rhinitis, unspecified (J30.9) Active confirmed Problem Sensorineural hearing loss of bilateral ears (disorder) (149707382) Sensorineural hearing loss, bilateral (H90.3) Active confirmed Problem Chronic maxillary sinusitis (49688631) Chronic maxillary sinusitis (J32.0) Active confirmed Problem Chronic frontal sinusitis (30587370) Chronic frontal sinusitis (J32.1) Active confirmed Problem Chronic ethmoidal sinusitis (74645065) Chronic ethmoidal sinusitis (J32.2) Active confirmed Problem Chronic sphenoidal sinusitis (22542024) Chronic sphenoidal sinusitis (J32.3) Active confirmed Problem Chronic sinusitis (15699345) Chronic sinusitis, unspecified (J32.9) Active confirmed Encounters Encounter Location Date Provider Diagnosis [facility] [address] [id number] 09/10/2024 Baron Jackson Allergic rhinitis, unspecified J30.9 ; Sensorineural hearing loss, bilateral H90.3 and Chronic sinusitis, unspecified J32.9 [facility] [place] [address] [address] [facility] [address] [place], [place] [phone] 09/30/2024 Baron Jackson Chronic frontal sinusitis J32.1 ; Chronic ethmoidal sinusitis J32.2 ; Chronic maxillary sinusitis J32.0 and Chronic sphenoidal sinusitis J32.3 [facility] [address] [id number] 10/19/2024 Baron Jackson Chronic frontal sinusitis J32.1 ; Chronic sphenoidal sinusitis J32.3 ; Chronic maxillary sinusitis J32.0 and Chronic ethmoidal sinusitis J32.2 [facility] [place] [address] [address] [facility] [address] [place], [place] [phone] 11/03/2024 Baron Jackson Chronic maxillary sinusitis J32.0 ; Chronic frontal sinusitis J32.1 ; Chronic ethmoidal sinusitis J32.2 and Chronic sphenoidal sinusitis J32.[address] [facility] [address] [id number] 10/19/2024 Baron Jackson Chronic maxillary sinusitis J32.0 Assessments Encounter Date Diagnosis (ICD Code) Assessment Notes Treatment Notes Treatment Clinical Notes Section Notes 09/10/2024 Allergic rhinitis, unspecified (ICD-10 - J30.9) possibly allergy testing, pt is on a beta arcelia, needs to talk to PCP Indications for allergy testing include: 1) Confirm suspicion of allergy. 2) Identify offending allergen to determine specific mode of treatment.3) Chronic Rhinosinusits: signs and symptoms are not controlled by avoidance and pharmacotherapy. 4) Asthma: persistent asthma in patient exposed to perennial allergens.5) Suspicion of food allergy. 6) Otitis media, Chronic Rhinitis, atopic dermatitis, Meniere's disease, headache, Pharyngitis, eye symptoms. 7) Patient was informed of risk of anaphylaxis while testing and being treated. 09/10/2024 Sensorineural hearing loss, bilateral (ICD-10 - H90.3) hearing aid evaluation hearing conservation measures discussed Follow up in one year for annual audiogram. 09/30/2024 Chronic frontal sinusitis (ICD-10 - J32.1) 09/30/2024 Chronic ethmoidal sinusitis (ICD-10 - J32.2) 10/19/2024 Chronic frontal sinusitis (ICD-10 - J32.1) 10/19/2024 Chronic sphenoidal sinusitis (ICD-10 - J32.3) 11/03/2024 Chronic maxillary sinusitis (ICD-10 - J32.0) doing well s/p IOB 11/03/2024 Chronic frontal sinusitis (ICD-10 - J32.1) 10/19/2024 Chronic maxillary sinusitis (ICD-10 - J32.0) 10/19/2024 Chronic maxillary sinusitis (ICD-10 - J32.0) 11/03/2024 Chronic ethmoidal sinusitis (ICD-10 - J32.2) 09/10/2024 Chronic sinusitis, unspecified (ICD-10 - J32.9) 09/30/2024 Chronic maxillary sinusitis (ICD-10 - J32.0) Bleeding, general anesthesia, infection, CSF leak, further surgery, anosmia, septal perforation, , CVA, and atrophic rhinitis, injury to adjacent structures, including teeth, injury to the orbit causing potential blindness. Injury to the central nervous system/brain, infection of the central nervous system, i.e. meningitis, , loss of sense of smell, septal perforation, need for a second surgery, dryness of the mucous membranes. 10/19/2024 Chronic ethmoidal sinusitis (ICD-10 - J32.2) 09/30/2024 Chronic sphenoidal sinusitis (ICD-10 - J32.3) 11/03/2024 Chronic sphenoidal sinusitis (ICD-10 - J32.3) Plan Of Treatment No Information Insurance Providers Payer Name Payer Address Payer Phone Subscriber Number Group Number Insured Name Patient Relationship to Insured Coverage Start Date Coverage End Date [facility] [address] [place] [address] [id number] Wilber Aden Self - patient is the insured Medical (General) History Medical History History ICD Code Sinusitis Allergic rhinitis Nose problems Hypertension lymphoma Surgical History Surgery Date(Month/Year) ankle cholecystectomy appendectomy
--- OUTSIDE RECORDS SUMMARY | 2025-03-05 00:37 | XMS_ITS | Clinical Summary ---
Author Organization [facility] Address [address] 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
--- OUTSIDE RECORDS SUMMARY | 2025-03-05 00:37 | XMS_ITS | Encounter Summary ---
Author Organization [facility] Address 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
[2025-03-05 11:24] VITALS: BP 134/74; PULSE 69; RESP 19; TEMP 36.3; O2SAT 98
[2025-03-05] MEDS: LACTATED RINGERS 1,000 ML 150 ML IV CONT (11:40)
--- NOTE | 2025-03-05 11:45 | WPDANESEPPF ---
Anes - Initial Pre Proc Eval Procedure: Operation Date: 03/05/25 12:30 Proposed Procedures p Esophagogastroduodenoscopy EGD - Scott Bridges MD Date/Time: 03/05/25 11:45 Surgeon: Scott Bridges MD Pre Op Diagnosis: Abnormal weight loss, Epigastric pain Patient Data Age: 64 Gender: M Height: 1.78 m Weight: 90.3 kg Last Vital Signs Temp 36.3 C L 03/05/25 11:24 Pulse 69 03/05/25 11:24 Resp 19 03/05/25 11:24 BP 134/74 03/05/25 11:24 Pulse Ox 98 03/05/25 11:24 O2 Del Method Room Air 03/05/25 11:24 Allergies Allergy/AdvReac Type Severity Reaction Status Date / Time No Known Allergies Allergy Mild Verified 03/05/25 11:23 Home Medications ?Medication ?Instructions ?Recorded ?Confirmed ?Type tramadol 50 mg tablet 50 mg PO BID PRN pain, severe #30 03/01/22 03/01/25 Rx tabs sildenafil 100 mg tablet 100 mg PO DAILY PRN sexual 04/14/24 03/01/25 Rx activity #30 tabs metoprolol succinate 50 mg 50 mg PO DAILY #90 tabs 08/19/24 03/05/25 Rx tablet,extended release 24 hr omeprazole 20 mg tablet,delayed 20 mg PO DAILY #90 tabs 01/12/25 03/05/25 Rx release valsartan 80 1 tablet PO DAILY #90 tabs 01/12/25 02/22/25 Rx mg-hydrochlorothiazide 12.5 mg tablet Held on 02/22/25. Instructions: .Provider Order Patient hx anesthesia problems: none Family hx anesthesia problems: none Results Review: All pre-operative results and documents have been reviewed as part of the pre-operative evaluation. [facility] Past Medical History Medical History Tobacco use Cutaneous T-cell lymphoma GERD (gastroesophageal reflux disease) HTN (hypertension) Family History Family History Mother Hypertension Cerebrovascular accident Family history of diabetes mellitus in first degree relative Sibling Family history of diabetes mellitus in first degree relative Patient's sister is in good health Other Diabetes mellitus Social History Social History Smoking packs per day: 0.75 Smoking cigarettes per day: 15.0 Years smoked: 50 Smoking pack-years: 37.50 Smoking status: Current every day smoker Tobacco type: cigarettes Second hand tobacco smoke exposure: No Alcohol intake: current Drinks per week: 12 Alcohol use details: WEEK Substance use: never Substance use type: does not use Living arrangements: with family Occupation/Education: occupation Gender identity (if verbalized by the patient): Male Sexual Orientation (if Verbalized by the Patient): Straight or Heterosexual Spiritual care concerns: No Anes - Eval Final PreProcedure Day of Procedure 03/05/25 11:45 Patient weight: overweight Heart: regular rate and rhythm Lungs: clear to auscultation Airway: Mallampati scale class II Neurological: alert and oriented Last oral intake: >/= 8 hours ASA classification: IV Emergent: no Anesthetic plan: proceed Anesthesia type and monitoring: general GIVS and standard monitoring Results Review: All pre-operative results and documents have been reviewed as part of the pre-operative evaluation. Informed Consent: The patient's anesthetic plan and its attendant risks and benefits were discussed with the patient/family/POA. Questions were solicited and answers provided to the satisfaction of the patient/family/POA.
--- NOTE | 2025-03-05 11:54 | PM.HPGS ---
History of Present Illness History of Present Illness Consent: Risks, benefits, and alternatives have been discussed and questions answered. Patient agrees to proceed with procedure. Chief complaint: Abnormal weight loss, Epigastric pain Narrative: Wilber Aden is a 64 year old male here for egd, h/o weight loss and gerd Review of Systems Review of Systems: All systems reviewed & are unremarkable except as noted in HPI and below PMFSH Past Medical History Medical History (Updated 03/05/25 @ 11:54 by Scott Bridges MD) Weight loss Tobacco use Cutaneous T-cell lymphoma GERD (gastroesophageal reflux disease) HTN (hypertension) Family History Family History Mother Hypertension Cerebrovascular accident Family history of diabetes mellitus in first degree relative Sibling Family history of diabetes mellitus in first degree relative Patient's sister is in good health Other Diabetes mellitus Social History Social History Smoking packs per day: 0.75 Smoking cigarettes per day: 15.0 Years smoked: 50 Smoking pack-years: 37.50 Smoking status: Current every day smoker Tobacco type: cigarettes Second hand tobacco smoke exposure: No Alcohol intake: current Drinks per week: 12 Alcohol use details: WEEK Substance use: never Substance use type: does not use Living arrangements: with family Occupation/Education: occupation Gender identity (if verbalized by the patient): Male Sexual Orientation (if Verbalized by the Patient): Straight or Heterosexual Spiritual care concerns: No Meds Home Medications and Allergies Home Medications ?Medication ?Instructions ?Recorded ?Confirmed ?Type tramadol 50 mg tablet 50 mg PO BID PRN pain, severe #30 03/01/22 03/01/25 Rx tabs sildenafil 100 mg tablet 100 mg PO DAILY PRN sexual 04/14/24 03/01/25 Rx activity #30 tabs metoprolol succinate 50 mg 50 mg PO DAILY #90 tabs 08/19/24 03/05/25 Rx tablet,extended release 24 hr omeprazole 20 mg tablet,delayed 20 mg PO DAILY #90 tabs 01/12/25 03/05/25 Rx release valsartan 80 1 tablet PO DAILY #90 tabs 01/12/25 02/22/25 Rx mg-hydrochlorothiazide 12.5 mg tablet Held on 02/22/25. Instructions: .Provider Order Allergies Allergy/AdvReac Type Severity Reaction Status Date / Time No Known Allergies Allergy Mild Verified 03/05/25 11:23 Vital Signs Vital Signs - 24 hr 03/05/25 11:24 Temperature 97.4 F L Pulse Rate 69 Respiratory Rate 19 Blood Pressure 134/74 Pulse Oximetry 98 Oxygen Delivery Room Air Exam Const: General: comfortable and no acute distress HENMT: Face/Nose/Sinus: Normal nares present Eyes: General: appearance normal, both eyes and all related structures Neck: Neck: no JVD Resp: Auscultation: clear to auscultation bilaterally Cardio: Rate: regular rate Rhythm: regular rhythm GI: Inspection: non-distended GI Palp: Yes Soft to palpation Skin: General skin exam: normal color Extrem: General: normal to inspection Psych: Mental Status: mental status grossly normal Assessment and Plan Assessment and plan (1) GERD (gastroesophageal reflux disease): Qualifiers: Esophagitis presence: esophagitis presence not specified Qualified Code(s): K21.9 - Gastro-esophageal reflux disease without esophagitis Code(s): K21.9 - Gastro-esophageal reflux disease without esophagitis Status: Acute Assessment and Plan: egd (2) Weight loss: Code(s): R63.4 - Abnormal weight loss Status: Acute
--- NOTE | 2025-03-05 11:58 | S_PTH ---
PATIENT: Wilber Aden LOC: [facility]#:[id number] AGE/SX: 64/M ROOM: RE03/05/[address]: Scott Bridges MD : 1960 BED: DIS: 03/05/2025 SPEC #: [id number] RECD: 03/05/25 13:13 STATUS: KAL REVenus #: [id number] NANDA: 03/05/25 11:[address]: Scott Bridges DEPT: [facility] [place] Surgical RECD BY: Pretty Rod ENTERED: 03/05/25 13:13 SP TYPE: Surgical OTHR DR: Robles Kerr MD Tissues: A - Gastric Biopsy B - Small Bowel Bx Procedures: Hematoxylin and Eosin Stain Gross and Microscopic Level 4
[2025-03-05 12:05] VITALS: BP 112/66; PULSE 70; RESP 15; O2SAT 99
[2025-03-05 12:15] VITALS: BP 116/68; PULSE 69; RESP 24; O2SAT 98
[2025-03-05 12:25] VITALS: BP 127/70; PULSE 65; RESP 22; O2SAT 98
== END 2025-03-05 12:35 | disposition home or self-care (01) ==
PROVIDERS: PCP Family Medicine; Referring Provider Student in an Organized Health Care Education/Training Program; Visit Provider Internal Medicine Gastroenterology
PROC: 0DJ08ZZ Inspection of Upper Intestinal Tract, Via Natural or Artificial Opening Endoscopic (ICD-10-PCS; CPT 43239; principal; 2025-03-05 12:30)
DX: K21.9 Gastro-esophageal reflux disease without esophagitis (principal); K31.7 Polyp of stomach and duodenum; I10 Essential (primary) hypertension; F17.210 Nicotine dependence, cigarettes, uncomplicated; Z79.891 Long term (current) use of opiate analgesic; Z85.72 Personal history of non-Hodgkin lymphomas
CPT/HCPCS: 43239; 88305; J2003; J2704; J7120

== ENCOUNTER 2025-04-01 07:38 | Outpatient (CLI) | payer MEDICARE, SELFPAY ==
--- OUTSIDE RECORDS SUMMARY | 2024-08-20 08:30 | XMS_ITS ---
Author Organization [facility] Address [address] [id number] Care Team Providers Care Detail Drafter Name Role Phone Robles Kerr Primary Care Provider Baron Archibald [phone] REASON FOR VISIT sinus problems//ks Encounters Encounter Location Date Provider Diagnosis [facility] [address] [address] [place] [phone] 08/20/2024 Baron Jackson Plan Of Treatment No [...] joint motion, no popping or clicking Submandibular [place] no masses palpate d Neurological Cranial Nerves: [...] * Wilber OSORIODOB:[birth year] (64 yo M)Acc No.[id number]:08/20/2024 Progress Note Patient: Wilber Milan Provider: Nura Jackson DO :1960 A ge:64 Y S ex:Male Date:08/20/2024 Address:[address] [place] [address] Pcp:Robles Kerr Subjective: * Chief Complaints: * [...] joint motion, no popping or clicking. Submandibular [place] n o masses palpated. ? L ymphatic: [...] Electronic signature of Mustapha Jackson DO on 04/01/2025 at 07:44 AM CAR DUMPER OPERATOR HELPER Sign off status: Pending * Provider: Nura Jackson DO Date: 0 08/20/2024 Generated for Martín tang/Herson/eTnidasmitting on: 06/02/2024 07:44 AM CAR DUMPER OPERATOR HELPER
--- NOTE | ~2025-04-01 | CT_ITS ---
EXAMINATION:CT lung screening DATE: 04/01/2025 07:58 INDICATION: Personal history of nicotine dependence. TECHNIQUE: Computed tomography (CT) of the chest was performed without intravenous contrast. Automated exposure control and iterative reconstruction technique were employed. The dose-length product (DLP) was 130.44 mGy-cm. COMPARISON: Chest CT 03/11/2024 FINDINGS: There is no pneumonia or pleural effusion. The heart size is normal. There are coronary artery calcifications. No pericardial effusion. There are changes of cholecystectomy. There is moderate thoracic spondylosis. IMPRESSION: 1. Lung-RADS category 1: Negative. Continue annual screening with noncontrast low-dose chest CT in 12 months. Reviewed, dictated and finalized at location E. OZOOLOGIST IMPRESSION: 1. Lung-RADS category 1: Negative. Continue annual screening with noncontrast l ow-dose chest CT in 12 months.
--- NOTE | ~2025-04-01 | US_ITS ---
EXAMINATION: US aorta [facility] DATE: 04/01/2025 08:30 INDICATION: Abdominal aortic aneurysm screening with risk factors of smoking and hypertension TECHNIQUE: Grayscale, color Doppler, and pulsed Doppler images of the aorta and common iliac arteries were obtained. COMPARISON: None. FINDINGS: The proximal aorta measures 2.2 cm. The mid aorta measures 2.6 cm. The distal aorta measures 2.0 cm. The right common iliac artery measures 1.7 cm. The left common iliac artery measures 1.8 cm. IMPRESSION: 1. Normal caliber abdominal aorta. Reviewed, dictated and finalized at location A. ERY MENDER
--- OUTSIDE RECORDS SUMMARY | 2025-04-01 07:44 | XMS_ITS | Patient Health Record ---
Author Organization [facility] Address [address] [id number] Care Team Providers Care Academic Director Name Role Phone Robles Kerr Primary Care Provider Baron Archibald [phone] Allergies No Known Allergies Results Component Value Reference Range Notes CT Scan : Sinuses [place]* Reviewed date:09/28/2024 12:29:53 PM Interpretation: Performing Lab: Notes/Report: [facility] * Reviewed date:12/14/2024 02:10:11 PM Interpretation: Performing Lab: Notes/Report: Reason For [...] W/U Status Risk Notes Problem Allergic rhinitis (96534146) Allergic rhinitis, unspecified (J30.9) Active confirmed Problem Sensorineural hearing loss of bilateral ears (disorder) (604856345) Sensorineural hearing loss, bilateral (H90.3) Active confirmed Problem Chronic maxillary sinusitis (97785205) Chronic maxillary sinusitis (J32.0) Active confirmed Problem Chronic frontal sinusitis (99922979) Chronic frontal sinusitis (J32.1) Active confirmed Problem Chronic ethmoidal sinusitis (78821837) Chronic ethmoidal sinusitis (J32.2) Active confirmed Problem Chronic sphenoidal sinusitis (27480499) Chronic sphenoidal sinusitis (J32.3) Active confirmed Problem Chronic sinusitis (83101010) Chronic sinusitis, unspecified (J32.9) Active confirmed Encounters Encounter Location Date Provider Diagnosis [facility] [address] [id number] 09/10/2024 Baron Jackson Allergic rhinitis, unspecified J30.9 ; Sensorineural hearing loss, bilateral H90.3 and Chronic sinusitis, unspecified J32.9 [facility] [place] [address] [id number] 09/30/2024 Baron Jackson Chronic frontal sinusitis J32.1 ; Chronic ethmoidal sinusitis J32.2 ; Chronic maxillary sinusitis J32.0 and Chronic sphenoidal sinusitis J32.3 [facility] [address] [id number] 10/19/2024 Baron Jackson Chronic frontal sinusitis J32.1 ; Chronic sphenoidal sinusitis J32.3 ; Chronic maxillary sinusitis J32.0 and Chronic ethmoidal sinusitis J32.2 [facility] [place] [address] [id number] 11/03/2024 Baron Jackson Chronic maxillary sinusitis J32.0 ; Chronic frontal sinusitis J32.1 ; Chronic ethmoidal sinusitis J32.2 and Chronic sphenoidal sinusitis J32.3 [facility] [address] [id number] 10/19/2024 Baron Jackson Chronic maxillary sinusitis J32.0 Assessments Encounter Date Diagnosis (ICD Code) Assessment Notes Treatment Notes Treatment Clinical Notes Section Notes 10/19/2024 Chronic maxillary sinusitis (ICD-10 - J32.0) 11/03/2024 Chronic maxillary sinusitis (ICD-10 - J32.0) doing well s/p IOB 11/03/2024 Chronic frontal sinusitis (ICD-10 - J32.1) 09/30/2024 Chronic frontal sinusitis (ICD-10 - J32.1) 09/30/2024 Chronic ethmoidal sinusitis (ICD-10 - J32.2) 10/19/2024 Chronic sphenoidal sinusitis (ICD-10 - J32.3) 09/10/2024 Allergic rhinitis, unspecified (ICD-10 - J30.9) [...] up in one year for annual audiogram. 10/19/2024 Chronic frontal sinusitis (ICD-10 - J32.1) 09/10/2024 Chronic sinusitis, unspecified (ICD-10 - J32.9) [...] dryness of the mucous membranes. 10/19/2024 Chronic maxillary sinusitis (ICD-10 - J32.0) 11/03/2024 Chronic ethmoidal sinusitis (ICD-10 - J32.2) 11/03/2024 Chronic sphenoidal sinusitis (ICD-10 - J32.3) 09/30/2024 Chronic sphenoidal sinusitis (ICD-10 - J32.3) 10/19/2024 Chronic ethmoidal sinusitis (ICD-10 - J32.2) Plan Of Treatment No Information Insurance Providers Payer Name Payer Address Payer Phone Subscriber Number Group Number Insured Name Patient Relationship to Insured Coverage Start Date Coverage End Date [facility] [address] [place] [address] [id number] Wilber Aden Self - patient is the insured Medical (General) History Medical History History ICD Code Sinusitis Allergic rhinitis Nose problems Hypertension lymphoma Surgical History Surgery Date(Month/Year) ankle cholecystectomy appendectomy
--- OUTSIDE RECORDS SUMMARY | 2025-04-01 07:44 | XMS_ITS | Encounter Summary ---
Author Organization [facility] Address 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
--- OUTSIDE RECORDS SUMMARY | 2025-04-01 07:44 | XMS_ITS | Patient Health Record ---
Author Organization [facility] [place] Address [address] [address] Care Team Providers Care Aircraft Time Clerk Name Role Phone Adarsh Garcia Unavailable [phone] Allergies No Known Allergies Reason For Referral [...] W/U Status Risk Notes Problem Lumbar radiculopathy (542909753) Lumbar radiculopathy (M54.16) Active confirmed Problem Lumbosacral spondylosis without myelopathy (30465147) Facet arthritis of lumbosacral region (M47.817) Active [...]
--- OUTSIDE RECORDS SUMMARY | 2025-04-01 07:44 | XMS_ITS | Clinical Summary ---
Author Organization [facility] Address [address] 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
--- OUTSIDE RECORDS SUMMARY | 2025-04-01 07:44 | XMS_ITS | Clinical Summary ---
Author Organization [email or web address] Address [address] [place] [address] Care Team Providers Care Auto Locator Name Role Phone Robles Kerr MD Primary Care Provider [phone] Source Comments [email or web address],non-owned Affiliates and Associated Physician Practices is amultiple site organization consisting of ambulatory clinics and hospital sitesin [place], [place], [place]. This disclosure is being madepursuant to the Care Everywhere program and may not contain all information available regarding this patient. Last updated 18.[employer] [email or web address] Allergies No known active allergies Medications * [...] 80-12.5 MG tablet 5 Active HYDROcodone-lucille taminophen (Union) 7.5-325 MG tablet TAKE 1 TABLET BY MOUTH EVERY 6 HOURS X 3 DAYS 5 Active sildenafil (Viagra) 100 MG tablet TAKE 1 TABLET BY MOUTH EVERY DAY NEEDED FOR SEXUAL ACTIVITY. ADMINISTER 30 MINS - 4 HOURS BEFORE ACTIVITY 4 Active Active Problems Problem Noted Date Diagnosed Date Allergic rhinitis 11/23/2024 Chronic sinusitis 11/23/2024 Facet arthritis of lumbosacral region 11/23/2024 Sensorineural hearing loss (SNHL) of both ears 0 11/23/2024 Lumbar radiculopathy 08/24/2024 Lumbosacral spondylosis without myelopathy 08/24 Encounters Date Type Department Care Team Description 02/16/2025 11:35 AM CDT Ancillary Procedure [facility] - Radiology [address] [place] [id number] Rozina Soriano PA-C Right shoulder pain, unspecified chronicity 02/16/2025 11:30 AM CDT Office Visit [facility] [address] [place] [phone] Rozina Soriano PA-C Tendinitis of right rotator [...] on file 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 [address] - 02/16/2025 11:34 AM CDT Please see progress note in Epic for results. us Rozina Soriano PA-C DIAGNOSTIC IMAGING ORDERABLE S Final Result [facility] [place] [address] from Last 3 Months Insurance [employer] MEDICARE ADV Care Teams Auto Locator Relationship Specialty Start Date End Date Robles Kerr MD [address] [place] [address] PCP - General Family Medicine 09/17/24
== END 2025-04-01 07:39 | disposition home or self-care (01) ==
PROVIDERS: PCP Family Medicine; Visit Provider Student in an Organized Health Care Education/Training Program
DX: Z12.2 Encounter for screening for malignant neoplasm of respiratory organs (principal); Z87.891 Personal history of nicotine dependence
CPT/HCPCS: 71271; 76706